=== PATIENT | male | born 1995 | race Caucasian/White ===

== ENCOUNTER 2020-11-02 11:37 | Emergency (ER) | payer OTHER ==
[~2020-11-02] VITALS: Ht 167.6 cm; Wt 66.0 kg
[2020-11-02 11:50] VITALS: BP 119/69
[2020-11-02] MEDS ORDERED: LIDOCAINE (700MG/PATCH) PATCH. TD SCH (12:30)
--- NOTE | 2020-11-02 12:42 | RAD ---
Right RIBS with PA chest. HISTORY: Bladder injury right anterior ribs with pain PA view was taken of the chest. There is no pneumothorax or pleural effusion. Heart is normal in size . Lungs are clear. AP and oblique views were taken of the right ribs. An acute rib fracture or osseous abnormality is no t identified. IMPRESSION: 1. No acute chest disease. 2. No acute rib fracture noted. Electronically signed by: Martín Ellison MD (11/02/2020 12:39 PM) [id number]
--- NOTE | 2020-11-02 13:07 | PHYS DOC ---
Past History Past Medical History: Asthma Past Surgical History: Other Additional Past Surgical Histo: Plate to jaw. Alcohol Use: None General Adult EDM: Chief Complaint: RIB PAIN HPI: HPI: 25-year-old male pmh asthma, presents to the ed (w/girlfriend who's also being seen as an ed pt) with complaints of ( "severe" per rn note) right anterior chest wall/rib pain that started last night after patient was running and accidentally ran into a metal pole, thought the gate was open/it was dark outside. States pain is localized to his ribs but now with the lidocaine patch is fully resolved. Reports it hurts to take deep breaths. No pain over the sternum, abdomen or back. Review of Systems: Review of Systems: Constitutional: Denies fever or chills Eyes: Denies change in visual acuity HENT: Denies nasal congestion or sore throat Respiratory: Denies cough or shortness of breath Cardiovascular: Denies syncope, hemoptysis or edema GI: Denies abdominal pain, nausea, vomiting, bloody stools or diarrhea : Denies dysuria Musculoskeletal: Denies back pain or joint pain Integument: Denies rash Neurologic: Denies headache, focal weakness or sensory changes Endocrine: Denies polyuria or polydipsia Lymphatic: Denies swollen glands Psychiatric: Denies depression or anxiety Current Medications: Current Meds: Current Medications Medications (Trade) Dose Ordered Sig/Terrie Start Time Stop Time Status Last Admin Dose Admin Lidocaine (Lidoderm) 1 patch DAILY 11/02/20 12:30 Miscellaneous (Lidoderm Patch Removal) 1 ea QHS 11/02/20 21:00 Allergies: Allergies: Allergies Coded Allergies Type Severity Reaction Last Updated Verified azithromycin Allergy Unknown 11/02/20 Yes Physical Exam: PE: Constitutional: Well developed, well nourished, no acute distress, non-toxic appearance. HENT: Normocephalic, atraumatic, Eyes: EOMI, conjunctiva normal, no discharge. Neck: Normal range of motion, supple, no jvd Cardiovascular: S1/2 present, regular rhythm Lungs & Thorax: Speaking in full sentences, bilateral equal chest rise, no tachypnea or increased work of breathing, no flail chest, no palpable subc utaneous emphysema, no bruising or deformity, no ttp (lidopatch applied) over prior region of pain Abdomen: soft, no tenderness, Skin: Warm, dry, no erythema, no rash. [] Extremities: No tenderness, no cyanosis, Neurologic: Alert and oriented X 3, normal motor function, normal sensory function, no focal deficits noted. [] Psychologic: Affect normal, judgement normal, mood normal. [] Nexus C-spine criteria are negative: There is no post midline tenderness, the patient is not intoxicated, there is a normal level of alertness, there are no focal neurologic deficits and there are no distracting injuries. Current Patient Data: Vital Signs: Vital Signs Date Time Temp Pulse Resp B/P (MAP) Pulse Ox O2 Delivery O2 Flow Rate FiO2 11/02/20 11:50 97.5 65 18 119/69 (86) 99 EKG: EKG: [] Radiology/Procedures: Radiology/Procedures: IMAGING REPORT Signed PATIENT: BILL GONZALEZ ACCOUNT: [id number] : 1995 LOCATION: ER AGE: 25 SEX: M EXAM STATUS: REG ER ORD. PHYSICIAN: NITA CURRAN DO REASON: Blunt injury right anterior rib with pain PROCEDURE: RIBS RIGHT AND PA CHEST Right RIBS with PA chest. HISTORY: Bladder injury right anterior ribs with pain PA view was taken of the chest. There is no pneumothorax or pleural effusion. Heart is normal in size. Lungs are clear. AP and oblique views were taken of the right ribs. An acute rib fracture or oss eous abnormality is not identified. IMPRESSION: 1. No acute chest disease. 2. No acute rib fracture noted. Electronically signed by: Martín Ellison MD (11/02/2020 12:39 PM) [id number] DICTATED AND SIGNED BY: MARTÍN ELLISON MD DATE: 11/02/20 1237 CC: PCP,NO; NITA CURRAN DO ~MTH0 0 Heart Score: C/O Chest Pain: No Risk Factors: Risk Factors: DM, Current or recent (<one month) smoker, HTN, HLP, family history of CAD, obesity. Risk Scores: Score 0 - 3: 2.5% MACE over next 6 weeks - Discharge Home Score 4 - 6: 20.3% MACE over next 6 weeks - Admit for Clinical Observation Score 7 - 10: 72.7% MACE over next 6 weeks - Early Invasive Strategies Course & Med Decision Making: Course & Med Decision Making Pertinent Labs and Imaging studies reviewed. (See chart for details) Concern for blunt chest wall injury in a very well-appearing patient, no signs of trauma on exam. Patient speaking in full sentences/no tachypnea or increased work of breathing. Is asymptomatic with no JVD. Has no pain over sternum or chest discomfort/shortness of breath/back pain. Incentive spirometer education performed with RT. we will treat conservatively with lidocaine and muscle relaxer prescriptions, in addition [id number] analgesia. Will discharge home with strict ED return precautions were given for fever, productive cough, or flulike symptoms.Will discharge home with strict ED return precautions. Encouraged urgent outpatient follow-up with PMD. Life-threatening processes were considered but are low suspicion at this time, given history, physical exam and ED workup. Pt was educated on all prescription medications and adverse effects. All patient's questions were answered and pt was stable at time of discharge. Life/limb-threatening differential includes but is not limited to, acute myocardial infarction, aortic dissection, congestive heart failure, esophageal injury including rupture, surgical abdomen, arrhythmia, cardiomyopathy, myocarditis, pericarditis, peptic ulcer disease, pneumomediastinum, pneumonia, pneumothorax, pulmonary embolus, unstable angina, rib fracture, contusion, pericardial tamponade or effusion, traumatic injury including mediastinal hemorrhage or hematoma, or pulmonary contusion. I spoken with the patient and her caregivers. I explained the patient's condition, diagnoses and treatment plan based on the information available to me at this time. I have answered the patient and her caregiver's questions and addressed any concerns. The patient and her caregivers have a good understanding of patient's diagnosis, condition and treatment plan as can be expected at this point. Vital signs have been stable. Patient's condition is stable and appropriate for discharge from the emergency department. Patient will pursue further outpatient evaluation with primary care physician or other designated or consulting physician as outlined in the discharge instructions. The patient and/or caregivers are agreeable to this plan of care and follow-up instructions have been explained in detail. The patient and/or caregivers have received these instructions in written form and have expressed an understanding of the discharge instructions. The patient and/or caregivers are aware that any significant change of condition or worsening of symptoms should prompt immediate return to this or the closest emergency department or call to JoseErika Carmichael Disclaimer: Jany Disclaimer: This electronic medical record was generated, in whole or in part, using a voice recognition dictation system. Departure Departure: Impression: Primary Impression: Blunt injury of chest Additional Impression: Contusion of rib on right side Disposition: 01 DC HOME SELF CARE/HOMELESS Condition: STABLE Referrals: PCP,NO (PCP) FOLLOW UP WITH FAMILY MEDICINE: Family Medicine Address: [address] [place] [address], [address] [address] Patient Instructions: Blunt Chest Trauma, Rib Contusion Additional Instructions: EMERGENCY DEPARTMENT GENERAL DISCHARGE INSTRUCTIONS Thank you for coming to [facility] (ED) today and trusting us with you care. We trust that you had a positivie experience in our Emergency Department. If you wish to speak to the department management, you may call the director at [phone]. YOUR FOLLOW UP INSTRUCTIONS ARE FOLLOWS: 1. Do you have a private Doctor? If you do not have a private doctor, please ask for a resource list of physicians or clinics that may be able to assist you with follow up care. 2. The Emergency Physician has interpreted your x-rays. The X-Ray specialist will also review them. If there is a change in the findings, you will be notified in 48 hours when at all possible. 3. A lab test or culture has been done, your results will be reviewed and you will be notified if you need a change in treatment. ADDITIONAL INSTRUCTIONS AND INFORMATION: 1. Your care today has been supervised by a physician who is specially trained in emergency care. Many problems require more than one evaluation for a complete diagnosis and treatment. We recommend that you schedule your follow up appointment as recommended to ensure complete treatment of you illness or injury. If you are unable to obtain follow up care and continue to have a problem, or if your condition worsens, we recommend that you return to the ED. 2. We are not able to safely determine your condition over the phone nor are we able to give sound medical advice over the phone. For these safety reasons, if you call for medical advice we will ask you to come to the ED for further evaluation. 3. If you have any questions regarding these discharge instructions please call the ED at [phone]. SAFETY INFORMATION: In the interest of safety, wellness, and injury prevention; we encourage you to wear your sealbelt, if you smoke; quite smoking, and we encourage family to use a protective helmet for bicycling and other sporting events that present an increased risk for head injury. IF YOUR SYMPTOMS WORSEN OR NEW SYMPTOMS DEVELOP, OR YOU HAVE CONCERNS ABOUT YOUR CONDITION; OR IF YOUR CONDITION WORSENS WHILE YOU ARE WAITING FOR YOUR FOLLOW UP APPOINTMENT; EITHER CONTACT YOUR PRIMARY CARE DOCTOR, THE PHYSICIAN WHOSE NAME AND NUMBER YOU WERE Nohemy GUAMAN, OR RETURN TO THE ED IMMEDIATELY. Scripts Lidocaine/Menthol (LIDOPATCH) 1 Each Adh..patch 1 HEAVEN TP DAILY for pain MDD 5% for 5 Days, #5 EACH 0 Refills Apply 1 patch daily for 12 hours and then remove for 12 hours, may repeat 4 times, total of 5 days Prov: NITA CURRAN DO 11/02/20 Cyclobenzaprine Hcl (CYCLOBENZAPRINE HCL) 5 Mg Tablet 1 TAB PO TID PRN for PAIN, #20 TAB Prov: NITA CURRAN DO 11/02/20 NITA CURRAN DO Nov 02, 2020 13:07
[2020-11-02] MEDS ORDERED: LIDO1ADH TP (13:16)
[2020-11-02] MEDS ORDERED: CYCL5TAB PO (13:16)
[2020-11-02] MEDS ORDERED: PATCH REMOVAL. MC SCH (21:00)
== END 2020-11-02 13:25 | disposition home or self-care (01) ==
LOC: ER 11:37
DX: S20.211A Contusion of right front wall of thorax, initial encounter (principal); J45.909 Unspecified asthma, uncomplicated; Z88.1 Allergy status to other antibiotic agents; W22.8XXA Striking against or struck by other objects, initial encounter; Y93.02 Activity, running; Y92.89 Other specified places as the place of occurrence of the external cause; Y99.8 Other external cause status
CPT/HCPCS: 71101; 99283; G0238